=== PATIENT | male | born 1965 | race Caucasian/White ===

== ENCOUNTER → 2016-09-16 | Outpatient (CLI) | payer OTHER | LOC: CAT 12:52 | DX: R10.2 Pelvic and perineal pain (principal); R10.9 Unspecified abdominal pain ==

== ENCOUNTER → 2018-10-03 | Outpatient (CLI) | payer OTHER ==
[~2018-10-03] VITALS: Ht 182.9 cm; Wt 90.7 kg
[~2018-10-03] MED LIST: CETIRIZINE HCL5 MG PO; CITRUCEL500 MG PO; FLOMAX0.4 MG PO; L-LYSINE500 M1 PO; LANSOPRAZOLE30 MG PO; MEDROLDOSEPACK PO; UNICOMPLEX M TA1 TA1 PO; VALACYCLOVIR500 MG PO
[2018-10-03 13:06] VITALS: BP 130/78
--- NOTE | 2018-10-03 13:08 | NUR ---
[facility] Assessment: 1. History of Osteoarthritis: Not Applicable History of Rheumatoid Arthritis: Not Applicable 2. Height: 6 ft. 0 in. 182.9 cm. Weight: 200.0 lb. oz. 90.720 kg. Patient's BMI: 27.1 3. Vital Signs: BP: 130/78 Pulse: 88 Resp: 18 Temp: 02 Sat: 96 ECG Mon: 4. Pain Intensity: 7 5. Fall Risk: Dizziness: N Needs help standing or walking: N Fallen in the last 3 months: N Fall risk comments: 6. Patient on Blood Thinner: None 7. History of Hypertension: N 8. Opioid Therapy greater than 6 weeks: N Opiate Contract Signed: 9. Risk Assessment Tool Provided: 0-LOW 10. Functional Assessment Tool: 11. Recreational Drug Use: Never Drug Type: Tobacco Use: Never Smoker Tobacco Type: Amount or Packs/day: How Many Years: Alcohol Use: Yes Frequency: Weekly Quant: 3
== END ==
LOC: PAIN 07:04
DX: M54.5 Low back pain (principal); M54.2 Cervicalgia; M25.512 Pain in left shoulder; R20.0 Anesthesia of skin; M25.561 Pain in right knee; M25.562 Pain in left knee; M79.652 Pain in left thigh; M79.602 Pain in left arm; Z79.899 Other long term (current) drug therapy

== ENCOUNTER → 2019-02-22 | Outpatient (CLI) | payer OTHER | LOC: ULTRA 09:58 | DX: R22.41 Localized swelling, mass and lump, right lower limb (principal) ==